=== PATIENT | female | born 1940 | race Caucasian/White ===

== ENCOUNTER → 2017-09-16 | Outpatient (CLI) | payer MEDICARE, OTHER ==
[~2017-09-16] MED LIST: ASPIR-LOX325 MG PO; ASPIRIN81 MG PO; DAYPRO600 M1 PO; DELTASONE2.5 MG PO; K-TAB20 MEQ PO; LOMOTIL 0.025 M1 TA1 PO; MELOXICAM15 MG PO; METHOTREXATE2.5 MG PO; METOPROLOL50 MG PO; OMEGA-3 FISH1200 M1 PO; PERCOCET 325 MG1 TA2 PO; PERCOCET 325 MG1 TA7 PO; POTASSIUM GLUC550 M1 PO; PRAVACHOL40 MG PO; PREDNISONE20 MG PO; PRILOSEC20 MG PO; ROBAXIN750 MG PO; SIMVASTATIN40 MG PO; SYNTHROID,LEVO75 MCG PO; SYNTHROID,LEVO88 MCG PO; ULTRAM50 MG PO; VICODIN 5/500 505 MG PO; VICODIN 500 MG-1 TAB PO; VITAMIN D2000 IU PO; ZITHROMAX Z PA250 MG PO
[2017-09-16 09:56] LABS: BASO # 0.1 10*3/uL (0.0-0.1); BASO % 0.7 % (0.0-1.0); EOS # 0.2 10*3/uL (0.0-0.4); EOS % 1.7 % (1.0-4.0); HEMATOCRIT 38.1 % (37.0-47.0); HEMOGLOBIN 12.8 g/dl (12.0-16.0); LYMPH # 3.2 10*3/uL (1.3-4.4); LYMPH % 26.1 % (27.0-41.0); MEAN CELL VOLUME 92.3 fl (81.0-99.0); MEAN CORPUSCULAR HGB CONC 33.6 g/dl (33.0-37.0); MEAN PLATELET VOLUME 9.7 fl (9.6-12.3); MONO # 0.9 10*3/uL (0.1-1.0); MONO % 7.6 % (3.0-9.0); NEUT # 7.8 10*3/uL (2.3-7.9); NEUT % 63.2 % (47.0-73.0); PLATELET COUNT AUTOMATED 239 10*3/uL (130-400); RED BLOOD COUNT 4.13 10*6/uL (4.10-5.10); RED CELL DISTRI WIDTH 14.6 % (0-14.5); WHITE BLOOD COUNT 12.4 10*3/uL (4.8-10.8)
[2017-09-16 10:17] LABS: ALBUMIN 3.4 gm/dl (3.1-4.5); ALKALINE PHOSPHATASE 73 U/L (45-117); BUN 13 mg/dl (7-24); CHLORIDE 107 mmol/L (98-107); CHOLESTEROL 147 mg/dL (<200); HDL CHOLESTEROL 57 mg/dl (40-60); LDL CHOLESTEROL 50 mg/dL (9-159); POTASSIUM 3.3 mmol/L (3.5-5.1); SGOT/AST 10 IU/L (3-35); SGPT/ALT 13 U/L (12-78); SODIUM 143 mmol/L (136-145); TOTAL PROTEIN 6.6 gm/dL (6.4-8.2); TRIGLYCERIDES 202 mg/dl (<150); VLDL CHOLESTEROL 40 mg/dL (6-40)
== END ==
LOC: LAB 09:01
PROVIDERS: Internal Medicine
DX: I10 Essential (primary) hypertension (principal); E03.9 Hypothyroidism, unspecified; E55.9 Vitamin D deficiency, unspecified

== ENCOUNTER → 2017-09-22 | Outpatient (CLI) | payer MEDICARE, OTHER | END | disposition home or self-care (01) | LOC: RAD 08:35 | DX: M50.322 Other cervical disc degeneration at C5-C6 level (principal); G45.8 Other transient cerebral ischemic attacks and related syndromes; M48.02 Spinal stenosis, cervical region ==

== ENCOUNTER → 2017-09-26 | Outpatient (CLI) | payer MEDICARE, OTHER | END | disposition home or self-care (01) | LOC: CT 14:44 | DX: R90.82 White matter disease, unspecified (principal); R20.0 Anesthesia of skin; Z86.73 Personal history of transient ischemic attack (TIA), and cerebral infarction without residual deficits ==

== ENCOUNTER 2018-01-28 14:52 | Emergency (ER) | payer MEDICARE, OTHER ==
[~2018-01-28] VITALS: Wt 66.2 kg
[2018-01-28] MEDS ORDERED: ASPIRIN325 M2 PO (15:01)
[2018-01-28 15:08] LABS: BASO # 0.1 10*3/uL (0.0-0.1); BASO % 0.7 % (0.0-1.0); EOS # 0.1 10*3/uL (0.0-0.4); EOS % 0.5 % (1.0-4.0); HEMATOCRIT 42.8 % (37.0-47.0); LYMPH # 2.5 10*3/uL (1.3-4.4); LYMPH % 19.4 % (27.0-41.0); MEAN CELL VOLUME 91.1 fl (81.0-99.0); MEAN CORPUSCULAR HGB 29.8 pg (27.0-31.0); MEAN CORPUSCULAR HGB CONC 32.7 g/dl (33.0-37.0); MEAN PLATELET VOLUME 9.4 fl (9.6-12.3); MONO # 0.6 10*3/uL (0.1-1.0); MONO % 4.5 % (3.0-9.0); NEUT # 9.6 10*3/uL (2.3-7.9); NEUT % 74.6 % (47.0-73.0); PLATELET COUNT AUTOMATED 275 10*3/uL (130-400); RED CELL DISTRI WIDTH 13.8 % (0-14.5); WHITE BLOOD COUNT 12.9 10*3/uL (4.8-10.8)
[2018-01-28 15:23] LABS: ALBUMIN 3.8 gm/dl (3.1-4.5); ALKALINE PHOSPHATASE 95 U/L (45-117); BUN 10 mg/dl (7-24); CHLORIDE 101 mmol/L (98-107); CREATININE 0.77 mg/dL (0.55-1.02); LIPASE 70 U/L (73-393); POTASSIUM 3.9 mmol/L (3.5-5.1); SGOT/AST 14 IU/L (3-35); SGPT/ALT 14 U/L (12-78); SODIUM 139 mmol/L (136-145); TOTAL PROTEIN 7.5 gm/dL (6.4-8.2)
[2018-01-28 15:35] LABS: BILIRUBIN NEGATIVE (NEGATIVE); BLOOD 2+ (NEGATIVE); CLARITY CLEAR (CLEAR); COLOR YELLOW (YELLOW); GLUCOSE NEGATIVE (NEGATIVE); KETONE NEGATIVE (NEGATIVE); LEUKO ESTERASE TRACE (NEGATIVE); NITRITE NEGATIVE (NEGATIVE)
[2018-01-28 15:43] LABS: BACTERIA 2+; MUCOUS TRACE
[2018-01-28 15:44] LABS: RBC 21-30 rbc/hpf (0-2)
[2018-01-28 17:21] VITALS: BP 148/64
[2018-01-28] MEDS ORDERED: ZOFRAN4 MG PO (17:21)
[2018-01-28] MEDS ORDERED: CIPRO500 MG PO (17:21)
[2018-01-28] MEDS ORDERED: FLAGYL500 MG PO (17:21)
== END 2018-01-28 17:28 | disposition left against medical advice (07) ==
LOC: ED 14:52
PROVIDERS: Nurse Practitioner Family
DX: R10.32 Left lower quadrant pain (principal); M19.90 Unspecified osteoarthritis, unspecified site; Z88.6 Allergy status to analgesic agent; Z79.899 Other long term (current) drug therapy

== ENCOUNTER → 2018-03-24 | Outpatient (CLI) | payer MEDICARE, OTHER ==
[~2018-03-24] MED LIST changes: +ASPIRIN325 M2 PO; +CIPRO500 MG PO; +FLAGYL500 MG PO; +ZOFRAN4 MG PO
== END | disposition home or self-care (01) ==
LOC: US 13:44
DX: N83.201 Unspecified ovarian cyst, right side (principal)

== ENCOUNTER → 2018-07-04 | Outpatient (CLI) | payer MEDICARE, OTHER | END | disposition home or self-care (01) | LOC: US 12:06 | DX: N83.201 Unspecified ovarian cyst, right side (principal); N83.202 Unspecified ovarian cyst, left side ==

== ENCOUNTER → 2020-02-26 | Outpatient (CLI) | payer MEDICARE, OTHER | END | disposition home or self-care (01) | LOC: US 11:00 | DX: N85.8 Other specified noninflammatory disorders of uterus (principal); N83.8 Other noninflammatory disorders of ovary, fallopian tube and broad ligament; N83.201 Unspecified ovarian cyst, right side; N83.202 Unspecified ovarian cyst, left side ==

== ENCOUNTER → 2021-06-26 | Outpatient (CLI) | payer MEDICARE, OTHER | END | disposition home or self-care (01) | LOC: ORTHO 06-25 23:12 → RAD 14:00 | PROVIDERS: ATTEND Orthopaedic Surgery | DX: M19.011 Primary osteoarthritis, right shoulder (principal); M81.0 Age-related osteoporosis without current pathological fracture ==

== ENCOUNTER 2021-11-07 15:55 | Emergency (ER) | payer MEDICARE, OTHER ==
[~2021-11-07] VITALS: Ht 149.8 cm; Wt 59.0 kg
[2021-11-07 17:01] LABS: ALBUMIN 2.8 gm/dl (3.1-4.5); ALKALINE PHOSPHATASE 74 U/L (45-117); BUN 10 mg/dl (7-24); CHLORIDE 108 mmol/L (98-107); CREATININE 0.64 mg/dL (0.55-1.02); INTERNATIONAL NORM RATIO 1.1 (2.0-3.5); POTASSIUM 3.7 mmol/L (3.5-5.1); SGOT/AST 17 IU/L (3-35); SGPT/ALT 8 U/L (12-78); SODIUM 140 mmol/L (136-145); TOTAL PROTEIN 6.2 gm/dL (6.4-8.2)
[2021-11-07 17:24] LABS: BASO % 0.4 % (0.0-1.0); EOS % 0.2 % (1.0-4.0); HEMATOCRIT 36.3 % (37.0-47.0); LYMPH # 1.4 10*3/uL (1.3-4.4); LYMPH % 13.2 % (27.0-41.0); MEAN CELL VOLUME 89.2 fl (81.0-99.0); MEAN CORPUSCULAR HGB CONC 32.5 g/dl (33.0-37.0); MEAN PLATELET VOLUME 9.5 fl (9.6-12.3); MONO # 0.5 10*3/uL (0.1-1.0); MONO % 4.8 % (3.0-9.0); NEUT # 8.7 10*3/uL (2.3-7.9); NEUT % 80.9 % (47.0-73.0); PLATELET COUNT AUTOMATED 271 10*3/uL (130-400); RED BLOOD COUNT 4.07 10*6/uL (4.10-5.10); RED CELL DISTRI WIDTH 14.6 % (0-14.5); WHITE BLOOD COUNT 10.7 10*3/uL (4.8-10.8)
[2021-11-07 18:12] LABS: BILIRUBIN 2+ (Negative); BLOOD Negative (Negative); CLARITY Cloudy (Clear); COLOR Dark Yellow (Yellow); GLUCOSE Trace (Negative); KETONE Trace (Negative); LEUKO ESTERASE 1+ (Negative); NITRITE Negative (Negative); PH 5.5 (4.5-8.0); SPECIFIC GRAVITY >= 1.030 (1.001-1.030)
[2021-11-07 18:24] LABS: BACTERIA TRACE; MUCOUS TRACE; RBC 0-2 rbc/hpf (0-2)
[2021-11-07 21:52] LABS: BUN 11 mg/dl (7-24); CHLORIDE 107 mmol/L (98-107); CREATININE 0.53 mg/dL (0.55-1.02); POTASSIUM 3.4 mmol/L (3.5-5.1); SODIUM 141 mmol/L (136-145)
[2021-11-07 22:09] VITALS: BP 132/88
== END 2021-11-07 22:05 | disposition left against medical advice (07) ==
LOC: ED 15:55
PROVIDERS: Physician Assistant
DX: E87.8 Other disorders of electrolyte and fluid balance, not elsewhere classified (principal); Z88.6 Allergy status to analgesic agent; Z79.899 Other long term (current) drug therapy; Z79.82 Long term (current) use of aspirin; Z90.89 Acquired absence of other organs; Z90.49 Acquired absence of other specified parts of digestive tract

== ENCOUNTER → 2021-12-22 | Outpatient (CLI) | payer MEDICARE, OTHER | END | disposition home or self-care (01) | LOC: US 14:00 | PROVIDERS: ATTEND Internal Medicine Cardiovascular Disease | DX: I65.23 Occlusion and stenosis of bilateral carotid arteries (principal); I77.9 Disorder of arteries and arterioles, unspecified ==

== ENCOUNTER 2022-05-06 20:00 | Inpatient (IN) | payer MEDICARE, OTHER ==
[~2022-05-06] VITALS: Ht 149.8 cm; Wt 58.1 kg
[2022-05-06 20:52] VITALS: BP 106/50
[2022-05-06] MEDS ORDERED: LEVOTHYROXINE50 MCG PO (20:54)
[2022-05-06 22:23] LABS: BASO # 0.1 10*3/uL (0.0-0.1); BASO % 0.7 % (0.0-1.0); EOS # 0.1 10*3/uL (0.0-0.4); EOS % 0.5 % (1.0-4.0); HEMATOCRIT 44.8 % (37.0-47.0); LYMPH # 1.1 10*3/uL (1.3-4.4); LYMPH % 8.6 % (27.0-41.0); MEAN CELL VOLUME 88.9 fl (81.0-99.0); MEAN CORPUSCULAR HGB 28.6 pg (27.0-31.0); MEAN CORPUSCULAR HGB CONC 32.1 g/dl (33.0-37.0); MEAN PLATELET VOLUME 9.5 fl (9.6-12.3); NEUT % 81.7 % (47.0-73.0); PLATELET COUNT AUTOMATED 288 10*3/uL (130-400); RED BLOOD COUNT 5.04 10*6/uL (4.10-5.10); WHITE BLOOD COUNT 12.2 10*3/uL (4.8-10.8)
[2022-05-06 22:37] LABS: BILIRUBIN 2+ (Negative); BLOOD Negative (Negative); CLARITY Cloudy (Clear); COLOR Dark Yellow (Yellow); GLUCOSE Trace (Negative); KETONE 1+ (Negative); LEUKO ESTERASE 1+ (Negative); NITRITE Negative (Negative); SPECIFIC GRAVITY >= 1.030 (1.001-1.030)
[2022-05-06 22:39] LABS: CREATININE 1.41 mg/dL (0.55-1.02); POTASSIUM 2.8 mmol/L (3.5-5.1)
[2022-05-06 22:47] LABS: BACTERIA 1+; MUCOUS 1+; WBC 31-40 wbc/hpf (0-5)
[2022-05-06 23:09] LABS: ETHYL ALCOHOL < 3.0 mg/dl (<3)
[2022-05-06 23:22] LABS: URINE AMPHETAMINES < 1000 (1000ng/ml); URINE BARBITURATES < 200 (200ng/ml); URINE BENZODIAZEPINES < 200 (200ng/ml); URINE CANNABINOIDS (THC) < 50 (50ng/ml); URINE COCAINE < 300 (300ng/ml); URINE METHADONE < 300 (300ng/ml); URINE OPIATES < 300 (300ng/ml)
[2022-05-06 23:23] LABS: URINE PHENCYCLIDINE < 25 (25ng/ml)
[2022-05-07 00:11] VITALS: BP 122/66
[2022-05-07 03:45] LABS: BASO # 0.1 10*3/uL (0.0-0.1); BASO % 0.6 % (0.0-1.0); EOS # 0.1 10*3/uL (0.0-0.4); EOS % 0.6 % (1.0-4.0); HEMATOCRIT 37.9 % (37.0-47.0); LYMPH # 1.4 10*3/uL (1.3-4.4); LYMPH % 13.3 % (27.0-41.0); MEAN CELL VOLUME 88.6 fl (81.0-99.0); MEAN CORPUSCULAR HGB 28.7 pg (27.0-31.0); MEAN CORPUSCULAR HGB CONC 32.5 g/dl (33.0-37.0); MONO # 0.9 10*3/uL (0.1-1.0); MONO % 8.4 % (3.0-9.0); NEUT # 8.3 10*3/uL (2.3-7.9); NEUT % 76.6 % (47.0-73.0); PLATELET COUNT AUTOMATED 261 10*3/uL (130-400); RED BLOOD COUNT 4.28 10*6/uL (4.10-5.10); WHITE BLOOD COUNT 10.9 10*3/uL (4.8-10.8)
[2022-05-07 04:00] LABS: BUN 14 mg/dl (7-24); CHLORIDE 108 mmol/L (98-107); CREATININE 0.86 mg/dL (0.55-1.02); POTASSIUM 3.2 mmol/L (3.5-5.1); SODIUM 137 mmol/L (136-145)
[2022-05-07 04:05] LABS: FREE T4 1.89 ng/dl (0.76-1.46)
[2022-05-07 04:11] LABS: THYROID STIM HORMONE (HS) 0.065 uIU/ml (0.358-4.75)
[2022-05-07 06:53] VITALS: BP 125/70
[2022-05-07 08:32] VITALS: BP 122/73
[2022-05-07 08:45] VITALS: BP 122/73
[2022-05-07] MEDS ORDERED: PHARMASSURE FO0.4 MG PO (09:27)
[2022-05-07 12:00] VITALS: BP 109/52
[2022-05-07 16:00] VITALS: BP 111/58
[2022-05-08 06:18] LABS: BASO # 0.1 10*3/uL (0.0-0.1); BASO % 0.8 % (0.0-1.0); EOS # 0.2 10*3/uL (0.0-0.4); EOS % 2.4 % (1.0-4.0); HEMATOCRIT 35.5 % (37.0-47.0); LYMPH # 1.7 10*3/uL (1.3-4.4); LYMPH % 19.2 % (27.0-41.0); MEAN CELL VOLUME 91.5 fl (81.0-99.0); MEAN CORPUSCULAR HGB 28.9 pg (27.0-31.0); MEAN CORPUSCULAR HGB CONC 31.5 g/dl (33.0-37.0); MEAN PLATELET VOLUME 9.7 fl (9.6-12.3); MONO # 0.7 10*3/uL (0.1-1.0); MONO % 7.7 % (3.0-9.0); NEUT % 69.4 % (47.0-73.0); PLATELET COUNT AUTOMATED 240 10*3/uL (130-400); RED BLOOD COUNT 3.88 10*6/uL (4.10-5.10); RED CELL DISTRI WIDTH 15.1 % (0-14.5); WHITE BLOOD COUNT 8.7 10*3/uL (4.8-10.8)
[2022-05-08 06:35] LABS: BUN 10 mg/dl (7-24); CHLORIDE 116 mmol/L (98-107); POTASSIUM 3.7 mmol/L (3.5-5.1); SODIUM 144 mmol/L (136-145)
[2022-05-08 06:38] LABS: CREATININE 0.59 mg/dL (0.55-1.02)
[2022-05-08] MEDS ORDERED: ZITHROMAX250 MG PO (11:33)
[2022-05-08] MEDS ORDERED: ONDANSETRON HYDR4 M1 PO (11:41)
[2022-05-08 12:00] VITALS: BP 105/78
== END 2022-05-08 14:29 | disposition home or self-care (01) | DRG 177 ==
LOC: ED 20:00 → 5E 22:57 → EDHOLD 22:57 → 5E 05-07 08:00
PROVIDERS: Emergency Medicine; Student in an Organized Health Care Education/Training Program; ADMIT Internal Medicine; ATTEND Internal Medicine
DX: J15.6 Pneumonia due to other Gram-negative bacteria (principal); N17.0 Acute kidney failure with tubular necrosis; N39.0 Urinary tract infection, site not specified; E44.0 Moderate protein-calorie malnutrition; E87.2 Acidosis; E86.0 Dehydration; Z20.822 Contact with and (suspected) exposure to COVID-19; E87.6 Hypokalemia; I25.10 Atherosclerotic heart disease of native coronary artery without angina pectoris; K21.9 Gastro-esophageal reflux disease without esophagitis; R73.9 Hyperglycemia, unspecified; E83.42 Hypomagnesemia; E03.9 Hypothyroidism, unspecified; E78.5 Hyperlipidemia, unspecified; M06.9 Rheumatoid arthritis, unspecified; Z88.6 Allergy status to analgesic agent; Z95.1 Presence of aortocoronary bypass graft; Z82.49 Family history of ischemic heart disease and other diseases of the circulatory system; Z90.49 Acquired absence of other specified parts of digestive tract; Z82.3 Family history of stroke; I25.2 Old myocardial infarction; Z79.82 Long term (current) use of aspirin; Z79.899 Other long term (current) drug therapy; Z68.25 Body mass index [BMI] 25.0-25.9, adult